=== PATIENT | male | born 1995 | race Caucasian/White ===

== ENCOUNTER 2022-07-15 14:52 | Emergency (ER) | payer OTHER ==
[2022-07-15 14:59] VITALS: BP 146/90
[2022-07-15] MEDS ORDERED: NORCO 325 MG-51 TA1 PO (18:15)
[2022-07-15] MEDS ORDERED: CEPHALEXIN500 M2 PO (18:15)
== END 2022-07-15 18:32 | disposition home or self-care (01) ==
LOC: ED 14:52 → EDBD 15:20 → ED 15:20
DX: S62.633B Displaced fracture of distal phalanx of left middle finger, initial encounter for open fracture (principal); Z28.310 Unvaccinated for COVID-19; W27.0XXA Contact with workbench tool, initial encounter
CPT/HCPCS: J0690; J2270; J3010